=== PATIENT | male | born 1950 | race African-American/Black ===

== ENCOUNTER 2017-08-08 11:33 | Inpatient (IN) | payer MEDICARE, OTHER ==
[2017-08-08] VITALS (24 sets, daily range): BP systolic 108–168; BP diastolic 62–132; PULSE 80–98; RESP 10–22; Ht 180.3 cm; Wt 81.0 kg
[~2017-08-08] VITALS: Ht 180.3 cm; Wt 81.0 kg
[2017-08-08] MEDS ORDERED: ASPI81TA3 PO (12:47)
[2017-08-08] MEDS ORDERED: LANT3I SC (12:50)
[2017-08-08] MEDS ORDERED: ATOR40TA68 PO (12:50)
[2017-08-08] MEDS ORDERED: CARV6.25 PO (12:50)
[2017-08-08] MEDS ORDERED: MIDAZOLAM 1 MG/ML 2 ML INJ ONE (13:21)
[2017-08-08] MEDS ORDERED: LIDOCAINE 1% (MDV) 20 ML INJ ONE (13:21)
[2017-08-08] MEDS ORDERED: IODIXANOL LOCM 100 ML BTL ONE (13:21)
[2017-08-08] MEDS ORDERED: VERAPAMIL 5 MG INJ ONE (13:21)
[2017-08-08] MEDS ORDERED: FENTAnyl 50 MCG/ML VIAL ONE ×2 (13:21→14:18)
[2017-08-08] MEDS ORDERED: HEPARIN 1000 UNITS/ML 10 ML INJ ONE (13:21)
[2017-08-08] MEDS ORDERED: NITROGLYCERIN (IC) 100 MCG/ML INJ ONE (13:21)
[2017-08-08] MEDS ORDERED: SOD CHLORIDE 0.9% 500 ML ONE (14:04)
[2017-08-08] MEDS ORDERED: BIVALIRUDIN 250MG /NS 50 ML 50 ML IVPB ONE (14:06)
[2017-08-08] MEDS ORDERED: ASPIRIN 325 MG TAB ONE (14:07)
[2017-08-08] MEDS ORDERED: CLOPIDOGREL 300 MG TAB ONE (14:07)
[2017-08-08] MEDS ORDERED: ONDANSETRON 4 MG INJ ONE (14:47)
[2017-08-08] MEDS ORDERED: hydrALAzine 20 MG INJ IV PRN (15:00)
[2017-08-08] MEDS ORDERED: morphine 2 MG INJ IV PRN (15:00)
--- NOTE | 2017-08-08 15:14 | OPR ---
Date/Time of Note Date/Time of Note DATE: 08/08/17 TIME: 14:58 Operative Report Procedure Date: Aug 08, 2017 Preoperative Diagnosis NSTEMI Postoperative Diagnosis NSTEMI Surgeon see signature line Smeller none Anesthesia Type: moderate sedation Estimated Blood Loss: minimal Transfusion none Specimen none Grafts/Implants none Complications none Procedure Description Procedure Date: 08/08/2017 Clothes Ironer/surgeon: Celestino Brown MD. Procedures Performed: 1)Left heart catheterization with selective left and right coronary angiography. 2)Balloon angioplasty and stenting of the prox OM2 with an [place] 2.5 x 15 stent. Pre-operative Diagnosis:NSTEMI Post-operative Diagnosis:NSTEMI s/p PCI of OM Indications:66 yo M with a h/o DM, PVD s/p bilateral BKA, CKD, who presented initially with altered mentation and was found to have an NSTEMI (trop 18), acute renal failure (now back to baseline ~1.9), DKA (resolved). EF was normal. The pt was agreeable to cardiac cath and understood the risk of YING. He agreed to proceed. Description of Procedure: After informed consent, the patient was brought to the cardiac catheterization lab. The procedure site was prepped and draped in usual manner. The patient was premedicated with versed 1mg and fentanyl 100 mcg. 2 mL lidocaine was injected into the left wrist. Next using the posterior wall technique, the 6/5 burundian sheath was inserted into the left radial artery. Next using the JL3.5 and JR4, selective angiography of the left and right coronary arteries were obtained. The pigtail was then advanced into the ventricle and hemodynamics obtained. Left ventricle angiography was not obtained due to elevated Cr. The decision was made to proceed with PCI of the OM 1 as this was the culprit lesion, though this had been occluded for 10+ days. A 6 burundian XB 3.5 guide was advanced and engaged into the left coronary artery. Appropriate anticoagulation and antiplatelets were given. A very brief attempt with BMW and PT light wires was attempted but eventually aborted due to this was essentially a [employer] SUR[employer] WORK[employer] now and the pt was asymptomatic and has renal dysfunction. Attention was directed to the OM2 as this was a significant vessel with significant stenosis involving a large area of myocardium. The lesion was crossed with the BMW wire. Next the 2.0 X 12 balloon was used to dilate the lesion times 3 at a maximum of 8 dinora. Subsequently, the [place]qu[place] 2.5 x 15 stent was advanced to the lesion and deployed at nominal pressure. The stent was not post dilated as it was properly inflated. Final angiography revealed RODRIGUE 3 flow, no edge dissection, and appropriate stent expansion. Next all equipment was removed and hemostasis was achieved by TR band. Findings: Anatomy/Hemodynamics: Left main: normal LAD:mid 30% Diagonal:luminal irregularities Circumflex: very tortuopus vessel in the mid portion at the takeoff of OM 2 Obtuse marginal 1: prox 100% (likely culprit) Obtuse marginal 2: prox long 90%, mid 40% RCA:very tortuous vessel with luminal irregularities PDA:mid 30%luminal irregularities PLV:luminal irregularities LV angiography:not done LV-Ao:no gradient LVEDP: 5 mmHg Contrast used: 120mL Fluoroscopy time:19.4min Medications used: Versed Fentanyl ASA 325 plavix 600 angiomax Equipment used: 6 burundian XB 3.5guide BMW angioplasty wire 2 x 8 2 x 12 balloon Daquan 2.5 x 15 drug eluting stent Estimated blood loss<10 mL. Specimen: none Grafts/implants: none Complications: none Assessment: NSTEMI s/p PCI of OM 2 CAD with occluded OM 1 now chronic and will be treated medically CKD: Baseline Cr ~1.9. Will hydrate aggressively as no heart failure by exam DM PVD s/p bilateral BKA Plan: -admit to ICU -ASA 81mg lifelong -plavix 1 year -metoprolol 25mg BID -ACEI/ARB at some point when renal function stable CELESTINO BROWN Aug 08, 2017 15:13
--- NOTE | 2017-08-08 15:15 | CONS ---
Date/Time of Note Date/Time of Note DATE: 08/08/17 TIME: 15:14 Assessment/Plan Assessment/Plan Chief Complaint/Hosp Course NSTEMI: s/p PCI of OM 2 CAD with occluded OM 1 now chronic and will be treated medically CKD: Baseline Cr ~1.9. Will hydrate aggressively as no heart failure by exam DM PVD s/p bilateral BKA -admit to ICU -ASA 81mg lifelong -plavix 1 year -metoprolol 25mg BID -ACEI/ARB at some point when renal function stable Problems: Consultation Date/Type/Reason Admit Date/Time Initial Consult Date Type of Consultation: Cardiology 24 HR Interval Summary Free Text/Dictation s/p PCI of OM 2. Will be admitted to ICU for observation Exam/Review of Systems Vital Signs Vitals Vital Signs Date Time Temp Pulse Resp B/P Pulse Ox O2 Delivery O2 Flow Rate FiO2 08/08/17 12:27 98.6 88 15 134/79 100 Room Air Exam Constitutional: alert, oriented Psych: nl mood/affect, no complaints Head: atraumatic, normocephalic Neck: supple, No jvd Respiratory: clear to auscultation, No crackles/rales Cardiovascular: regular rate and rhythm, No edema, No systolic murmur Gastrointestinal: non-tender, soft Extremities: other (bilateral BKA) Neurological: nl mental status, nl speech Medications Medications Current Medications Influenza Virus Vaccine 0.5 ml 0.5 ml ONCE ONCE IM* ; Start 08/09/17 at 14:00; Stop 08/09/17 at 14:01 Sodium Chloride (NS) 1,000 ml @ 300 mls/hr Q3H20M IV ; Start 08/08/17 at 14:50 ; Stop 08/08/17 at 18:49 Aspirin (Aspirin) 81 mg DAILY PO ; Start 08/09/17 at 09:00 Clopidogrel Bisulfate (plaVIX) 75 mg DAILY PO ; Start 08/09/17 at 09:00 Atorvastatin Calcium (Lipitor) 80 mg HS PO ; Start 08/08/17 at 21:00 Metoprolol Tartrate (Lopressor) 25 mg BID PO ; Start 08/08/17 at 21:00 Hydralazine HCl (Apresoline) 10 mg Q4H PRN IV SBP >160; Start 08/08/17 at 15: 00 Morphine Sulfate (morphine) 2 mg Q4H PRN IV pain; Start 08/08/17 at 15:00 CELESTINO BRISCOE Aug 08, 2017 15:15
[2017-08-08] MEDS ORDERED: ASPIRIN (EC) 81 MG TAB PO ONE (18:00)
[2017-08-08] MEDS: SOD CHLORIDE 0.9% 1,000 ML IV SCH ×2 (18:10→22:21)
[2017-08-08] MEDS: ATORVASTATIN 80 MG TAB PO SCH (21:37)
[2017-08-08] MEDS: METOPROLOL 25 MG TAB PO SCH (21:41)
[2017-08-08] MEDS ORDERED: GLUCOSE GEL 15 GRAM TUBE BUCCAL PRN (22:00)
[2017-08-08] MEDS ORDERED: DEXTROSE 50% 50 ML SYRINGE IV PRN ×2 (22:00)
[2017-08-08] MEDS ORDERED: GLUCAGON 1 MG INJ IM PRN (22:00)
[2017-08-08] MEDS ORDERED: GLUCOSE GEL 15 GRAM TUBE PO PRN ×2 (22:00)
[2017-08-08] MEDS: INSULIN ASPART [NOVOLOG] 3 ML PEN SC SCH (22:20)
[2017-08-09] VITALS (21 sets, daily range): BP systolic 92–165; BP diastolic 54–138; PULSE 78–89; RESP 10–20
[2017-08-09] MEDS: ACCU-CHEK XX SCH (02:04)
[2017-08-09] MEDS ORDERED: INSULIN ASPART [NOVOLOG] 3 ML PEN SC ONE (02:30)
[2017-08-09] MEDS ORDERED: INSULIN ASPART [NOVOLOG] 3 ML PEN SC SCH (07:35)
[2017-08-09] MEDS: ASPIRIN 81 MG TAB PO SCH (08:26)
[2017-08-09] MEDS: CLOPIDOGREL 75 MG TAB PO SCH (08:26)
[2017-08-09] MEDS: INSULIN ASPART [NOVOLOG] 3 ML PEN SC SCH ×5 (08:27→21:04)
[2017-08-09] MEDS: METOPROLOL 25 MG TAB PO SCH ×2 (10:00→20:59)
--- NOTE | 2017-08-09 10:21 | CONS ---
Date/Time of Note Date/Time of Note DATE: 08/09/17 TIME: 10:20 Assessment/Plan Assessment/Plan Chief Complaint/Hosp Course NSTEMI: s/p PCI of OM 2 CAD with occluded OM 1 now chronic and will be treated medically CKD: Baseline Cr ~1.9. Monitior DM PVD s/p bilateral BKA -ok to tele. Monitor renal function one more day. Possible d/c tomorrow -ASA 81mg lifelong -plavix 1 year -metoprolol 25mg BID -ACEI/ARB at some point when renal function stable Problems: Consultation Date/Type/Reason Admit Date/Time Aug 08, 2017 at 14:53 Type of Consultation: Cardiology 24 HR Interval Summary Free Text/Dictation No o/n events. Has right sided chest pain lasting a few minutes at a time. Exam/Review of Systems Vital Signs Vitals Vital Signs Date Time Temp Pulse Resp B/P Pulse Ox O2 Delivery O2 Flow Rate FiO2 08/09/17 08:00 78 08/09/17 06:00 11 124/78 97 Room Air 08/09/17 05:00 98.6 Intake and Output 08/08/17 08/08/17 08/09/17 15:00 23:00 07:00 Output Total 300 ml 500 ml Balance -300 ml -500 ml Exam Constitutional: alert, oriented Psych: nl mood/affect, no complaints Head: atraumatic, normocephalic Neck: No jvd Respiratory: clear to auscultation, No crackles/rales Cardiovascular: regular rate and rhythm, No edema, No systolic murmur Gastrointestinal: non-tender, soft Neurological: nl mental status, nl speech Results Results 24 hrs Laboratory Tests Test 08/08/17 16:12 08/08/17 20:49 08/08/17 21:52 08/09/17 02:02 Bedside Glucose 259 H 306 H 307 H 338 H Test 08/09/17 05:21 08/09/17 08:06 Bedside Glucose 246 H 254 H Medications Medications Current Medications Influenza Virus Vaccine (Fluzone) 0.5 ml ONCE ONCE IM* ; Start 08/09/17 at 14: 00; Stop 08/09/17 at 14:01 Aspirin (Aspirin) 81 mg DAILY PO Last administered on 08/09/17t 08:26; Admin Dose 81 MG; Start 08/09/17 at 09:00 Clopidogrel Bisulfate (plaVIX) 75 mg DAILY PO Last administered on 08/09/17 08:26; Admin Dose 75 MG; Start 08/09/17 at 09:00 Atorvastatin Calcium (Lipitor) 80 mg HS PO Last administered on 08/08/17 21: 37; Admin Dose 80 MG; Start 08/08/17 at 21:00 Metoprolol Tartrate (Lopressor) 25 mg BID PO Last administered on 08/09/17 10 :00; Admin Dose 25 MG; Start 08/08/17 at 21:00 Hydralazine HCl (Apresoline) 10 mg Q4H PRN IV SBP >160; Start 08/08/17 at 15: 00 Morphine Sulfate (morphine) 2 mg Q4H PRN IV pain; Start 08/08/17 at 15:00 Diagnostic Test (Pha) (Accu-Chek) 1 ea 02 XX Last administered on 08/09/17 02 :04; Admin Dose 1 EA; Start 08/09/17 at 02:00 Miscellaneous Information 1 ea NOTE XX ; Start 08/08/17 at 22:00 Glucose (Glutose) 15 gm Q15M PRN PO DECREASED GLUCOSE; Start 08/08/17 at 22:00 Glucose (Glutose) 22.5 gm Q15M PRN PO DECREASED GLUCOSE; Start 08/08/17 at 22: 00 Dextrose (D50w Syringe) 25 ml Q15M PRN IV DECREASED GLUCOSE; Start 08/08/17 at 22:00 Dextrose (D50w Syringe) 50 ml Q15M PRN IV DECREASED GLUCOSE; Start 08/08/17 at 22:00 Glucagon (Glucagen) 1 mg Q15M PRN IM DECREASED GLUCOSE; Start 08/08/17 at 22: 00 Glucose (Glutose) 15 gm Q15M PRN BUCCAL DECREASED GLUCOSE; Start 08/08/17 at 22:00 CELESTINO BRISCOE Aug 09, 2017 10:21
[2017-08-09 11:17] LABS: CALCIUM 8.8 mg/dl (8.4-10.2); CREATININE 1.54 mg/dl (0.61-1.24); POTASSIUM 4.9 mmol/L (3.5-5.1)
[2017-08-09] MEDS ORDERED: INFLUENZA VIRUS VACCINE 0.5 ML SYG IM* ONE (14:00)
[2017-08-09 15:30] LABS: BASOPHILS % 0.2 % (0.0-2.0); EOSINOPHILS # 0.2 10^3/ul (0.0-0.5); EOSINOPHILS % 3.1 % (0.0-7.0); HEMATOCRIT 36.2 % (42.0-52.0); LYMPHOCYTES % 15.4 % (15.0-51.0); MEAN CORPUSCULAR HEMOGLOBIN 28.6 pg (29.0-33.0); MEAN CORPUSCULAR HGB CONC 33.1 g/dl (32.0-37.0); MEAN CORPUSCULAR VOLUME 86.4 fl (82.0-101.0); MEAN PLATELET VOLUME 10.2 fl (7.4-10.4); MONOCYTE # 0.7 10^3/ul (0.3-0.9); MONOCYTES % 10.7 % (0.0-11.0); NEUTROPHIL # 4.5 10^3/ul (1.6-7.5); NEUTROPHILS % 70.3 % (39.0-77.0); PLATELET COUNT 235 10^3/UL (140-415); RED BLOOD COUNT 4.19 10^6/ul (4.70-6.10); RED CELL DISTRIBUTION WIDTH 12.6 % (11.5-14.5); WHITE BLOOD COUNT 6.4 10^3/ul (4.8-10.8)
[2017-08-09] MEDS: ATORVASTATIN 80 MG TAB PO SCH (20:58)
[2017-08-10] VITALS (9 sets, daily range): BP systolic 103–132; BP diastolic 52–77; PULSE 76–90; RESP 19–20
[2017-08-10] MEDS: ACCU-CHEK XX SCH (02:19)
[2017-08-10] MEDS: INSULIN ASPART [NOVOLOG] 3 ML PEN SC SCH ×4 (07:52→12:00)
[2017-08-10] MEDS ORDERED: INSULIN GLARGINE [LANtus] 3 ML PEN SC SCH (08:00)
--- NOTE | 2017-08-10 08:29 | CONS ---
Date/Time of Note Date/Time of Note DATE: 08/10/17 TIME: 08:27 Assessment/Plan Assessment/Plan Chief Complaint/Hosp Course NSTEMI: s/p PCI of OM 2 CAD with occluded OM 1 now chronic and will be treated medically CKD: Baseline Cr ~1.9. Was 1.5 yesterday DM PVD s/p bilateral BKA -if Cr ok today, can be d/c-ed from my standpoint -glucose control per primary team -ASA 81mg lifelong -plavix 1 year -metoprolol 25mg BID -ACEI/ARB at some point when renal function stable (outpt ok ) Problems: Consultation Date/Type/Reason Admit Date/Time Aug 08, 2017 at 14:53 Type of Consultation: Cardiology 24 HR Interval Summary Free Text/Dictation No o/n events. Glucose has been high. Exam/Review of Systems Vital Signs Vitals Vital Signs Date Time Temp Pulse Resp B/P Pulse Ox O2 Delivery O2 Flow Rate FiO2 08/10/17 08:11 90 08/10/17 07:32 97.9 19 109/55 96 08/09/17 13:00 Room Air Intake and Output 08/09/17 08/09/17 08/10/17 15:00 23:00 07:00 Intake Total 550 ml 200 ml Output Total 450 ml 900 ml 650 ml Balance -450 ml -350 ml -450 ml Exam Constitutional: alert, oriented Psych: nl mood/affect, no complaints Head: atraumatic, normocephalic Neck: No jvd Respiratory: clear to auscultation, No crackles/rales Cardiovascular: regular rate and rhythm, No edema Gastrointestinal: non-tender, soft Neurological: nl mental status, nl speech Results Result Diagram: 08/09/17 1515 08/09/17 1003 Results 24 hrs Laboratory Tests Test 08/09/17 10:03 08/09/17 12:09 08/09/17 15:15 08/09/17 17:01 Sodium Level 135 Potassium Level 4.9 Chloride Level 106 Carbon Dioxide Level 24 Anion Gap 10 Blood Urea Nitrogen 38 H Creatinine 1.54 H Glucose Level 304 H Calcium Level 8.8 Bedside Glucose 319 H 302 H White Blood Count 6.4 Red Blood Count 4.19 L Hemoglobin 12.0 L Hematocrit 36.2 L Mean Corpuscular Volume 86.4 Mean Corpuscular Hemoglobin 28.6 L Mean Corpuscular Hemoglobin Concent 33.1 Red Cell Distribution Width 12.6 Platelet Count 235 Mean Platelet Volume 10.2 Neutrophils % 70.3 Lymphocytes % 15.4 Monocytes % 10.7 Eosinophils % 3.1 Basophils % 0.2 Nucleated Red Blood Cells % 0.0 Neutrophils # 4.5 Lymphocytes # 1.0 Monocytes # 0.7 Eosinophils # 0.2 Basophils # 0.0 Nucleated Red Blood Cells # 0.0 Hemoglobin A1c 10.1 H Test 08/09/17 21:00 08/10/17 02:00 08/10/17 07:38 08/10/17 07:59 Bedside Glucose 207 338 H 501 *H 487 *H Test 08/10/17 08:18 Bedside Glucose 444 *H Medications Medications Current Medications Aspirin (Aspirin) 81 mg DAILY PO Last administered on 08/09/17 08:26; Admin Dose 81 MG; Start 08/09/17 at 09:00 Clopidogrel Bisulfate (plaVIX) 75 mg DAILY PO Last administered on 08/09/17 08:26; Admin Dose 75 MG; Start 08/09/17 at 09:00 Atorvastatin Calcium (Lipitor) 80 mg HS PO Last administered on 08/09/17 20: 58; Admin Dose 80 MG; Start 08/08/17 at 21:00 Metoprolol Tartrate (Lopressor) 25 mg BID PO Last administered on 08/09/17 20 :59; Admin Dose 25 MG; Start 08/08/17 at 21:00 Hydralazine HCl (Apresoline) 10 mg Q4H PRN IV SBP >160; Start 08/08/17 at 15: 00 Morphine Sulfate (morphine) 2 mg Q4H PRN IV pain; Start 08/08/17 at 15:00 Diagnostic Test (Pha) (Accu-Chek) 1 ea 02 XX Last administered on 08/10/17 02 :19; Admin Dose 1 EA; Start 08/09/17 at 02:00 Miscellaneous Information 1 ea NOTE XX ; Start 08/08/17 at 22:00 Glucose (Glutose) 15 gm Q15M PRN PO DECREASED GLUCOSE; Start 08/08/17 at 22:00 Glucose (Glutose) 22.5 gm Q15M PRN PO DECREASED GLUCOSE; Start 08/08/17 at 22: 00 Dextrose (D50w Syringe) 25 ml Q15M PRN IV DECREASED GLUCOSE; Start 08/08/17 at 22:00 Dextrose (D50w Syringe) 50 ml Q15M PRN IV DECREASED GLUCOSE; Start 08/08/17 at 22:00 Glucagon (Glucagen) 1 mg Q15M PRN IM DECREASED GLUCOSE; Start 08/08/17 at 22: 00 Glucose (Glutose) 15 gm Q15M PRN BUCCAL DECREASED GLUCOSE; Start 08/08/17 at 22:00 Insulin Glargine (Lantus) 16 unit DAILY@08 SC Last administered on 08/10/17 07:53; Admin Dose 16 UNIT; Start 08/10/17 at 08:00 CELESTINO BRISCOE Aug 10, 2017 08:29
[2017-08-10] MEDS: ASPIRIN 81 MG TAB PO SCH (09:00)
[2017-08-10] MEDS: METOPROLOL 25 MG TAB PO SCH (09:00)
[2017-08-10] MEDS: CLOPIDOGREL 75 MG TAB PO SCH (09:00)
--- NOTE | 2017-08-10 11:48 | CONS ---
Date/Time of Note Date/Time of Note DATE: 08/10/17 TIME: 11:46 Consult Date/Type/Reason Admit Date/Time Aug 08, 2017 at 14:53 Initial Consult Date Type of Consultation: Cardiology Subjective pt. seen and examined bs high last night feels ok wants to leave cleared by cardiology Objective Vital Signs Date Time Temp Pulse Resp B/P Pulse Ox O2 Delivery O2 Flow Rate FiO2 08/10/17 11:38 98.5 80 20 109/61 100 08/09/17 13:00 Room Air Intake and Output 08/09/17 08/09/17 08/10/17 15:00 23:00 07:00 Intake Total 550 ml 200 ml Output Total 450 ml 900 ml 650 ml Balance -450 ml -350 ml -450 ml Results/Medications Result Diagram: 08/09/17 1515 08/09/17 1003 Results 24 hrs Laboratory Tests Test 08/09/17 12:09 08/09/17 15:15 08/09/17 17:01 08/09/17 21:00 Bedside Glucose 319 H 302 H 207 White Blood Count 6.4 Red Blood Count 4.19 L Hemoglobin 12.0 L Hematocrit 36.2 L Mean Corpuscular Volume 86.4 Mean Corpuscular Hemoglobin 28.6 L Mean Corpuscular Hemoglobin Concent 33.1 Red Cell Distribution Width 12.6 Platelet Count 235 Mean Platelet Volume 10.2 Neutrophils % 70.3 Lymphocytes % 15.4 Monocytes % 10.7 Eosinophils % 3.1 Basophils % 0.2 Nucleated Red Blood Cells % 0.0 Neutrophils # 4.5 Lymphocytes # 1.0 Monocytes # 0.7 Eosinophils # 0.2 Basophils # 0.0 Nucleated Red Blood Cells # 0.0 Hemoglobin A1c 10.1 H Test 08/10/17 02:00 08/10/17 07:38 08/10/17 07:59 08/10/17 08:18 Bedside Glucose 338 H 501 *H 487 *H 444 *H Test 08/10/17 08:43 08/10/17 09:06 08/10/17 09:51 Bedside Glucose 432 *H 365 H 332 H Medications Current Medications Aspirin (Aspirin) 81 mg DAILY PO Last administered on 08/10/17t 09:00; Admin Dose 81 MG; Start 08/09/17 at 09:00 Clopidogrel Bisulfate (plaVIX) 75 mg DAILY PO Last administered on 08/10/17 09:00; Admin Dose 75 MG; Start 08/09/17 at 09:00 Atorvastatin Calcium (Lipitor) 80 mg HS PO Last administered on 08/09/17 20: 58; Admin Dose 80 MG; Start 08/08/17 at 21:00 Metoprolol Tartrate (Lopressor) 25 mg BID PO Last administered on 08/10/17 09 :00; Admin Dose 25 MG; Start 08/08/17 at 21:00 Hydralazine HCl (Apresoline) 10 mg Q4H PRN IV SBP >160; Start 08/08/17 at 15: 00 Morphine Sulfate (morphine) 2 mg Q4H PRN IV pain; Start 08/08/17 at 15:00 Diagnostic Test (Pha) (Accu-Chek) 1 ea 02 XX Last administered on 08/10/17 02 :19; Admin Dose 1 EA; Start 08/09/17 at 02:00 Miscellaneous Information 1 ea NOTE XX ; Start 08/08/17 at 22:00 Glucose (Glutose) 15 gm Q15M PRN PO DECREASED GLUCOSE; Start 08/08/17 at 22:00 Glucose (Glutose) 22.5 gm Q15M PRN PO DECREASED GLUCOSE; Start 08/08/17 at 22: 00 Dextrose (D50w Syringe) 25 ml Q15M PRN IV DECREASED GLUCOSE; Start 08/08/17 at 22:00 Dextrose (D50w Syringe) 50 ml Q15M PRN IV DECREASED GLUCOSE; Start 08/08/17 at 22:00 Glucagon (Glucagen) 1 mg Q15M PRN IM DECREASED GLUCOSE; Start 08/08/17 at 22: 00 Glucose (Glutose) 15 gm Q15M PRN BUCCAL DECREASED GLUCOSE; Start 08/08/17 at 22:00 Insulin Glargine (Lantus) 16 unit DAILY@08 SC Last administered on 08/10/17 07:53; Admin Dose 16 UNIT; Start 08/10/17 at 08:00 Assessment/Plan Chief Complaint/Hosp Course 1. DM2- readd insulin, meds 2. htn- resume meds 3. cad-s/p stent, cont meds. Problems: GAYLE ANN MD Aug 10, 2017 11:47
[2017-08-10] MEDS ORDERED: CLOP75TA28 PO (11:49)
[2017-08-10] MEDS ORDERED: LANT3I SC (11:49)
[2017-08-10] MEDS ORDERED: METO-448 PO (11:49)
--- NOTE | 2017-08-10 11:49 | DS ---
Date/Time of Note Date/Time of Note DATE: 08/10/17 TIME: 11:49 Discharge Summary Admission/Discharge Info Admit Date/Time Aug 08, 2017 at 14:53 Discharge Date/Time now Patient Condition: Good Hospital Course 1. DM2- readd insulin, meds 2. htn- resume meds 3. cad-s/p stent, cont meds. Home Meds Reported Medications Insulin Glargine* (Lantus*) 100 Unit/Ml Soln, 1 UNIT SC BID, #1 VIAL 08/08/17 Carvedilol* (Coreg*) 6.25 Mg Tablet, 6.25 MG PO BID, #60 TAB 08/08/17 Atorvastatin* (Atorvastatin*) 40 Mg Tablet, 40 MG PO QHS, #30 TAB 08/08/17 Aspirin* (Aspirin* Chew) 81 Mg Tab.chew, 81 MG PO DAILY, TAB.CHEW 08/08/17 Primary Care Provider Not On Staff Doctor Pending Labs Laboratory Tests Test 08/09/17 12:09 08/09/17 15:15 08/09/17 17:01 08/09/17 21:00 Bedside Glucose 319mg/dL (70-220) 302mg/dL (70-220) 207mg/dL (70-220) White Blood Count 6.410^3/ul (4.8-10.8) Red Blood Count 4.1910^6/ul (4.70-6.10) Hemoglobin 12.0g/dl (14.0-18.0) Hematocrit 36.2% (42.0-52.0) Mean Corpuscular Volume 86.4fl (82.0-101.0) Mean Corpuscular Hemoglobin 28.6pg (29.0-33.0) Mean Corpuscular Hemoglobin Concent 33.1g/dl (32.0-37.0) Red Cell Distribution Width 12.6% (11.5-14.5) Platelet Count 69731^3/UL (140-415) Mean Platelet Volume 10.2fl (7.4-10.4) Neutrophils % 70.3% (39.0-77.0) Lymphocytes % 15.4% (15.0-51.0) Monocytes % 10.7% (0.0-11.0) Eosinophils % 3.1% (0.0-7.0) Basophils % 0.2% (0.0-2.0) Nucleated Red Blood Cells % 0.0/100WBC (0.0-0.0) Neutrophils # 4.510^3/ul (1.6-7.5) Lymphocytes # 1.010^3/ul (0.8-2.9) Monocytes # 0.710^3/ul (0.3-0.9) Eosinophils # 0.210^3/ul (0.0-0.5) Basophils # 0.010^3/ul (0.0-0.1) Nucleated Red Blood Cells # 0.010^3/ul (0.0-0.0) Hemoglobin A1c 10.1% (0-5.9) Test 08/10/17 02:00 08/10/17 07:38 08/10/17 07:59 08/10/17 08:18 Bedside Glucose 338mg/dL (70-220) 501mg/dL (70-220) 487mg/dL (70-220) 444mg/dL (70-220) Test 08/10/17 08:43 08/10/17 09:06 08/10/17 09:51 Bedside Glucose 432mg/dL (70-220) 365mg/dL (70-220) 332mg/dL (70-220) GAYLE ANN MD Aug 10, 2017 11:49
== END 2017-08-10 17:05 | disposition home or self-care (01) | DRG 247 ==
LOC: CCL 11:33 → REC 14:53 → ICU 20:15 → MS4 08-09 13:32
PROVIDERS: ADMIT Internal Medicine Interventional Cardiology; ATTEND Internal Medicine Interventional Cardiology
PROC: B211YZZ Fluoroscopy of Multiple Coronary Arteries using Other Contrast (ICD-10-PCS; 2017-08-08)
PROC: 027034Z Dilation of Coronary Artery, One Artery with Drug-eluting Intraluminal Device, Percutaneous Approach (ICD-10-PCS; principal; 2017-08-08 13:30)
PROC: 4A023N7 Measurement of Cardiac Sampling and Pressure, Left Heart, Percutaneous Approach (ICD-10-PCS; 2017-08-08 13:30)
DX: I21.4 Non-ST elevation (NSTEMI) myocardial infarction (principal); E11.22 Type 2 diabetes mellitus with diabetic chronic kidney disease; I25.82 Chronic total occlusion of coronary artery; I25.10 Atherosclerotic heart disease of native coronary artery without angina pectoris; N18.9 Chronic kidney disease, unspecified; I12.9 Hypertensive chronic kidney disease with stage 1 through stage 4 chronic kidney disease, or unspecified chronic kidney disease; Z79.4 Long term (current) use of insulin; Z89.511 Acquired absence of right leg below knee; Z89.512 Acquired absence of left leg below knee
CPT/HCPCS: 80048; 82962; 83036; 85025; 90686; 93458; C1725; C1887; C9600; J0583; J1644; J1815; J2250; J2405; J3010; J7040; Q9967

== ENCOUNTER 2017-08-10 19:55 | Emergency (ER) | payer MEDICARE, OTHER ==
[~2017-08-10] VITALS: Ht 167.6 cm; Wt 81.8 kg
[~2017-08-10 19:55] MED LIST: ASPI81TA3 PO; ATOR40TA68 PO; CARV6.25 PO; CLOP75TA28 PO; LANT3I SC; METO-448 PO
[2017-08-10 20:04] VITALS: Ht 167.6 cm; Wt 81.8 kg
== END 2017-08-10 21:20 | disposition left against medical advice (07) ==
LOC: E/R 19:55
DX: Z53.21 Procedure and treatment not carried out due to patient leaving prior to being seen by health care provider (principal)
CPT/HCPCS: 82962